=== PATIENT | female | born 1955 | race Caucasian/White ===

== ENCOUNTER 2023-09-18 07:07 | Outpatient (CLI) | payer BC, SELFPAY ==
--- NOTE | 2023-09-18 07:15 | CRLHL7_ITS ---
For Patients: As a result of the Century Cures Act, medical imaging exams and procedure reports are released immediately into your electronic medical record. You may view this report before your referring provider. If you have questions, please contact your health care provider. Indication: Acute midline low back pain with right-sided sciatica Technique: Multiplanar, multisequence, MRI of the lumbar spine, obtained without contrast. Comparison: Lumbar spine x-ray 08/11/2023 Findings: Lumbar dextroconvex curvature, apex at L1-2, with preserved lumbar lordosis. Trace anterolisthesis at L4-5. No acute osseous abnormality or discrete pars defect. Incidental intraosseous hemangiomas at L3 and S1. No suspicious bone marrow lesion. Scattered degenerative Schmorl`s nodes. The conus medullaris terminates at L1-L2. No concerning findings identified in the paraspinal soft tissues. Incidental small left renal cysts. Slightly atrophic-appearing right kidney. Transitional, partially sacralized L5 segment. Minor degenerative changes at the included SI joints. T12-L1: No neural foraminal or spinal canal stenosis. L1-L2: Mild diffuse disc bulge, shallow left central disc protrusion, mild facet arthropathy. No neural foraminal or spinal canal stenosis. L2-L3: Mild diffuse disc bulge, shallow left central disc protrusion, mild facet arthropathy. Mild bilateral neural foraminal narrowing. No spinal canal stenosis. L3-L4: Diffuse disc bulge, central protrusion and annular fissure, facet arthropathy. Mild bilateral neural foraminal narrowing. Mild spinal canal narrowing. L4-L5: Disc uncovering/bulge, moderate right asymmetric facet arthropathy. No left, moderate right neural foraminal stenosis. Right lateral recess narrowing without significant central spinal canal stenosis. L5-S1: Mild diffuse disc bulge, right eccentric disc osteophyte complex, right asymmetric facet arthropathy. No neural foraminal or spinal canal stenosis. Impression: 1. Lumbar dextroconvex curvature with trace degenerative anterolisthesis at L4-5. No acute osseous abnormality. 2. At L4-L5, disc bulge and right asymmetric facet arthropathy contribute to moderate right neural foraminal stenosis, and mild right lateral recess narrowing. 3. Additional scattered spondylosis, contributing to mild neural foraminal and mild spinal canal narrowing elsewhere as detailed. Dictated by Veronique Cash MD @ 09/18/2023 10:12:22 AM (Electronically Signed)
== END 2023-09-18 07:08 | disposition home or self-care (01) ==
LOC: MRI 07:09
PROVIDERS: PCP Family Medicine; Visit Provider Family Medicine
DX: M54.41 Lumbago with sciatica, right side (principal); M51.26 Other intervertebral disc displacement, lumbar region
CPT/HCPCS: 72148